=== PATIENT | female | born 1990 | race Caucasian/White ===

== ENCOUNTER 2016-09-18 20:02 | Inpatient (IN) | payer SELFPAY ==
[2016-09-18] MEDS ORDERED: NORMAL SALINE 1,000 ML IV ONE (20:46)
[2016-09-18] MEDS ORDERED: METOCLOPRAMIDE HCL 5 MG/ML VIAL IV ONE (20:46)
--- NOTE | 2016-09-18 20:47 | ERNOTE ---
Medical Problem HPI - Narrative Date of Service: 09/18/16 - General Chief Complaint: Nausea/Vomiting Time Seen by Provider: 09/18/16 20:38 Source: patient, RN notes reviewed Exam Limitations: no limitations - Immun/Allergies/Home Medications Immunizations: IMMUNIZATION HX Immunizations Up to Date Yes History of Influenza Vaccine Yes Hx Pneumococcal Vaccination No Allergies/Adverse Reactions: Allergies latex Allergy (Verified 09/18/16 20:13) Home Medications: HOME MEDICATIONS NK [No Home Medication] 09/18/16 [Last Taken Unknown] - History of Present History Narrative: 26 y/o female ambulatory to the ED with her family for vomiting that has been present for 3 days. She reports being unable to keep down anything but bread. She also reports having a fever of 102 earlier today. She denies any diarrhea. She is having right sided "sciatica" pain and reports this was present before she became ill. She is approximately 14 weeks with her second child and is receiving her care at [facility]. She as treated for a urinary tract infection approximately 3 weeks ago. Date (Duration): 09/16/16 Review of Systems - Review of Systems Constitutional: Present: recent illness, fever, chills, fatigue, malaise EYE: Present: no symptoms reported ENT: Absent: nose congestion, sore throat Respiratory: Absent: shortness of breath, cough Cardiology: Present: no symptoms reported Gastrointestinal/Abdominal: Present: nausea, vomiting, constipation, abdominal pain, eating less, drinking less. Absent: diarrhea Genitourinary: Absent: frequency, dysuria, hematuria, decreased urinary output Musculoskeletal: Present: back pain. Absent: joint pain Skin: Absent: rash, lesions Neurological: Absent: headache, dizziness/light-headedness Endocrine: Present: no symptoms reported Hematologic/Lymphatic: Present: no symptoms reported Psych: Present: no symptoms reported - Patient's Past Medical History Patient History - Medical: No pertinent hx Patient History - Cardiac/Respiratory: No pertinent hx Patient History - Cancer: No Hx of Cancer Patient History - Surgical Procedures: T & A Patient History - Other: None LMP (females 10-50): LMP (Calendar): 06/10/16 - Social History Living Situations: home Psych History: Hx of Anxiety, Hx of Bipolar Disorder Smoking Status: Never smoker Alcohol Use: none Drug Use: none - Immunizations Immunizations Up to Date: Yes Hx Pneumococcal Vaccination: No History of Influenza Vaccine: Yes Physical Exam - Physical Exam General Appearance: Present: wd/wn, alert, anxious, other - appears somewhat uncomfortable Neck: Present: normal inspection, nontender, supple, full range of motion Respiratory: Present: no respiratory distress, normal breath sounds, no accessory muscle use, lungs clear Cardiovascular/Chest: Present: regular rate, rhythm, no murmur, normal peripheral pulses Gastrointestinal/Abdominal: Present: normal bowel sounds, soft, tenderness - suprapubic, distended - mildly, gravid uterus, other - FHT's 188 Back Exam: Present: normal range of motion, no vertebral tenderness, CVA tenderness (R). Absent: CVA tenderness (L) Extremity Exam: Present: normal inspection, normal range of motion, no edema Neurological Exam: Present: alert, oriented, normal mood/affect, no motor/ sensory deficits Skin Exam: Present: normal color, warm/dry ED Progress - Results and Orders Patient's Lab Results:: I have reviewed the patient's lab results. - Vital Signs Patient's Vital Signs:: I have reviewed the patient's vital signs. Vital Signs: Vital Signs 09/18/16 20:08 Temperature 37.8 C H Pulse Rate 102 H Respiratory 18 Rate Blood Pressure 125/64 O2 Sat by Pulse 99 Oximetry - Progress/Reassessment Chief Complaint: Nausea/Vomiting Progress:: Improved Progress Note-Subjective: 09/18/16 22:18 Nausea improved with Reglan, Temp came up to 38.6 and Tylenol was given. Awaiting a call back from Dr. Castillo to discuss admission vs. outpatient treatment. Plan - Plan Plan: Dr. Castillo returned call, will admit patient observation status to med/surg for IV antibiotics. Patient agrees with plan. A urine culture is pending. Blood cultures were not obtained initially but are now ordered. The patient's records from [facility] are being obtained as she may have a culture report from her recent UTI. Departure - Departure Clinical Impression: Pyelonephritis affecting in second trimester Disposition: [facility] Condition: Stable
[2016-09-18] MEDS ORDERED: METOCLOPRAMIDE HCL 5 MG/ML VIAL ONE (20:53)
--- OUTSIDE RECORDS SUMMARY | 2016-09-18 20:59 | XMS REPORT | Continuity of Care Document ---
:1990 Author Organization [employer] [place] [address] Care Team Providers Name Role Phone Beverly Brown Primary Care Provider [phone] Source Comments This disclosure is being made pursuant to the [employer] program and maynot contain all information available regarding this patient.[employer] Active Allergies and Adverse Reactions Allergen Noted Date Severity Reactions Comments Lactose Intolerance (Gi) 07/06/2015 Low Rash Latex 07/06/2015 Low Rash Current Medications Be aware that medications may not be up to date as of this document. Alwaysverify current medications with the patient. Prescription Sig. Disp. Refills Start Date End Date Status valACYclovir (VALTREX) Take 500 mg by Active 500 MG tablet mouth as needed. fluoxetine (PROZAC) 40 Take 1 capsule by 30 capsule 2 08/11/2015 Active MG capsule mouth daily. Active Problems No known active problems Social History Tobacco Use Types Packs/Day Years Used Date Never Smoker Smokeless Tobacco: Never Used Alcohol Use Drinks/Week oz/Week Comments No Last Filed Vital Signs Vital Sign Reading Time Taken Blood Pressure 102/66 08/11/2015 4:17 PM CDT Pulse 60 08/11/2015 4:17 PM CDT Temperature 36.2 C (97.2 F) 08/11/2015 4:17 PM CDT Respiratory Rate 18 08/11/2015 4:17 PM CDT Height 1.651 m (5' 5") 07/06/2015 2:18 PM CDT Weight 57.516 kg (126 lb 12.8 oz) 08/11/2015 4:17 PM CDT Body Mass Index 21.1 08/11/2015 4:17 PM CDT Oxygen Saturation 99% 08/11/2015 4:17 PM CDT Plan of Care Health Maintenance Due Date Last Done Comments Tetanus/Pertussis (1 - Tdap) 2009 Pap Smear 05/30/2011 Influenza Immunization (#1) 2015 Results from Last 3 Months Not on file
[2016-09-18 21:08] LABS: Hematocrit 35.6 % (37.0-47.0); Hemoglobin 12.8 gm/dL (12.5-16.0); Mean Corpuscular Hemoglobin 32.7 pg (27-31); Mean Platelet Volume 9.3 fl (6.0-9.5); Neutrophil # 7.4 K/mm3 (1.3-6.0); Neutrophil % 80.3 % (42-75.0); Platelet Count 186 K/mm3 (150-450); Red Blood Count 3.91 M/mm3 (4.2-5.4); Red Cell Distribution Width 11.8 % (11.5-14.0); White Blood Count 9.2 K/mm3 (4.0-10.5)
[2016-09-18 21:10] LABS: Urine Bilirubin 3 mg/dl (NEGATIVE); Urine Blood 25 /ul (NEGATIVE); Urine Ketone 5 mg/dL (NEGATIVE); Urine Protein 100 mg/dL (NEGATIVE); Urine Urobilinogen 4 EU/dl (NORMAL); Urine pH 6.5 pH (5.0-7.0)
[2016-09-18 21:21] LABS: Albumin * 3.3 gm/dl (3.4-5.0); Anion Gap 14.4 mmol/L (6.8-13.8); BUN/Creatinine Ratio 7.4 (9.0-21.6); Bilirubin, Total 1.1 mg/dL (0.0-1.1); Ca. Corrected For Albumin 9.1 mg/dL (8.4-10.2); Calcium * 8.9 mg/dL (7.9-10.9); Carbon Dioxide 23.5 mmol/L (24-32.6); Potassium 3.9 mmol/L (3.4-4.6); Total Protein 7.5 gm/dL (6.2-8.2)
[2016-09-18 21:22] LABS: Urine Appearance Cloudy; Urine Bacteria 3+; Urine Color Orange; Urine Nitrite Positive (NEGATIVE); Urine RBC None Seen /hpf (0-5); Urine WBC >50 /hpf (0-5)
[2016-09-18] MEDS ORDERED: ACETAMINOPHEN 325 MG TABLET PO ONE (21:43)
[2016-09-18] MEDS ORDERED: ACETAMINOPHEN 325 MG TABLET ONE (21:43)
--- OUTSIDE RECORDS SUMMARY | 2016-09-18 22:32 | XMS REPORT | Continuity of Care Document ---
:1990 Author Organization [employer] Address [place] [address] Care Team Providers Name Role Phone Beverly Brown Primary Care Provider [phone] Source Comments This disclosure is being made pursuant to the [employer] program and maynot contain all information available regarding this patient.[employer] Active Allergies and Adverse Reactions Allergen Noted [...]
--- NOTE | 2016-09-18 23:00 | HP ---
Chief Complaint - Chief Complaint Date of Service: 09/18/16 Time of Service: 22:45 Chief Complaint: back pain with nausea, fever, and chills History of Present Illness: 26-year-old 2 para 1 at approximately 14 weeks gestation age presents to the [facility] emergency room complaining of right lower quadrant back pain, fever, chills, and nausea. Patient's has been uncomplicated except for UTI 2 weeks ago which she was treated with Fosfomycin. She developed right lower quadrant flank/back pain approximately one week, nausea for the past 3 days, and fever and chills today. She denies abdominal trauma, dysuria, urgency, vaginal bleeding, vaginal discharge, cramping, chest pain, shortness of breath, or headache. - Patient's Past Medical History Patient History - Medical: No pertinent hx, UTI'S - once, 2 wks ago, Other - 6 yrs ago without complications Patient History - Cardiac/Respiratory: No pertinent hx Patient History - Cancer: No Hx of Cancer Patient History - Surgical Procedures: T & A Patient History - Other: None LMP (females 10-50): LMP (Calendar): 06/10/16 - Social History Living Situations: home Abuse History: No History of abuse Psych History: Hx of Anxiety, Hx of Bipolar Disorder Does anyone smoke in the home?: No Smoking Status: Never smoker Alcohol Use: none Drug Use: none - Immunizations Immunizations Up to Date: Yes Hx Pneumococcal Vaccination: No History of Influenza Vaccine: Yes Review Of Systems (GEN) - Review of Systems Generalized/Overall Review: Present: Chills, Fever EENTM: Present: No Symptoms Reported Respiratory: Present: No Symptoms Reported Cardiac: Present: No Symptoms Reported Abdominal: Present: Nausea, Vomiting, Other - right flank/back pain Genitourinary: Present: No Symptoms Reported Musculoskeletal: Present: Back Pain Neurological: Present: No Symptoms Reported Skin: Present: No Symptoms Reported Endocrine: Present: No Symptoms Reported Immunizations: IMMUNIZATION HX Immunizations Up to Date Yes History of Influenza Vaccine Yes Hx Pneumococcal Vaccination No Allergies/Adverse Reactions: Allergies Allergy/AdvReac Type Severity Reaction Status Date / Time latex Allergy Verified 09/18/16 20:13 Home Medications: HOME MEDICATIONS NK [No Home Medication] 09/18/16 [Last Taken Unknown] Exam - Exam Vital Signs: Vital Signs - Last Taken Temp 38.6 C H 06/27/17 21:40 Pulse 88 09/18/16 21:03 Resp 16 09/18/16 21:03 BP 106/47 09/18/16 21:03 Pulse Ox 98 09/18/16 21:03 Constitutional: Present: Alert, Oriented x3, Cooperative, No distress ENT Exam: Present: hearing grossly normal Eye Exam: bilateral eye: normal inspection Neck: Present: non-tender, supple Back Exam: Present: CVA tenderness (R) Breasts: Present: Exam deferred Respiratory: Present: lungs clear, normal breath sounds, no respiratory distress , no accessory muscle use Cardiovascular/Chest: Present: normal peripheral pulses, regular rate, rhythm, no edema, no murmur Abdomen: Present: soft, nontender, nondistended, no rebound tenderness, no masses, CVA tenderness, other - heart tones 188 in the emergency room /Rectal: Present: Exam deferred Extremity: Present: non-tender, no pedal edema, no calf tenderness Skin Exam: Present: normal color, warm/dry, no cyanosis Lymphatic: Present: no adenopathy Neurologic: Present: oriented x 3 Appearance: Present: appropriate appearance, appropriate insight Eye contact: Present: cooperative, good eye contact, normal speech Thoughts: Present: normal thought pattern Diagnostic Studies: Abnormal Lab Results 09/18/16 09/18/16 09/18/16 Range/Units 18:55 19:02 19:02 RBC 3.91 L (4.2-5.4) M/mm3 Hct 35.6 L (37.0-47.0) % MCH 32.7 H (27-31) pg Immature Gran # (Auto) 0.04 H (0.000-0.0310) K/mm3 Neutrophils % 80.3 H (42-75.0) % Lymphocytes % 9.7 L (20-51) % Monocytes % 9.5 H (0.0-9) % Neutrophils # 7.4 H (1.3-6.0) K/mm3 Lymphocytes # 0.9 L (1.5-3.5) k/mm3 Carbon Dioxide 23.5 L (24-32.6) mmol/L Anion Gap 14.4 H (6.8-13.8) mmol/L BUN/Creatinine Ratio 7.4 L (9.0-21.6) ALT 13 L (19-67) U/L Albumin 3.3 L (3.4-5.0) gm/dl Urine Protein 100 H (NEGATIVE) mg/dL Urine Blood 25 H (NEGATIVE) /ul Urine Nitrate Positive H (NEGATIVE) Urine Bilirubin 3 H (NEGATIVE) mg/dl Urine Urobilinogen 4 H (NORMAL) EU/dl Ur Leukocyte Esterase 500 H (NEGATIVE) /ul Urine WBC >50 H (0-5) /hpf Urine Bacteria 3+ H (NONE) Laboratory Results WBC 9.2 K/mm3 (4.0-10.5) 09/18/16 19:02 RBC 3.91 M/mm3 (4.2-5.4) L 09/18/16 19:02 Hgb 12.8 gm/dL (12.5-16.0) 09/18/16 19:02 Hct 35.6 % (37.0-47.0) L 09/18/16 19:02 MCV 91.0 fl (78-100) 09/18/16 19:02 MCH 32.7 pg (27-31) H 09/18/16 19:02 MCHC 36.0 g/dl (32-36) 09/18/16 19:02 RDW 11.8 % (11.5-14.0) 09/18/16 19:02 Plt Count 186 K/mm3 (150-450) 09/18/16 19:02 MPV 9.3 fl (6.0-9.5) 09/18/16 19:02 Immature Gran % (Auto) 0.40 % (0.001-0.429) 09/18/16 19:02 Immature Gran # (Auto) 0.04 K/mm3 (0.000-0.0310) H 09/18/16 19:02 Neutrophils % 80.3 % (42-75.0) H 09/18/16 19:02 Lymphocytes % 9.7 % (20-51) L 09/18/16 19:02 Monocytes % 9.5 % (0.0-9) H 09/18/16 19:02 Eosinophils % 0.0 % (0.0-3.0) 09/18/16 19:02 Basophils % 0.1 % (0.0-1.0) 09/18/16 19:02 Nucleated RBC % 0.0 k/mm3 (0-1) 09/18/16 19:02 Neutrophils # 7.4 K/mm3 (1.3-6.0) H 09/18/16 19:02 Lymphocytes # 0.9 k/mm3 (1.5-3.5) L 09/18/16 19:02 Monocytes # 0.9 k/mm3 (0.0-1.0) 09/18/16 19:02 Eosinophils # 0.0 k/mm3 (0.0-0.7) 09/18/16 19:02 Absolute Basophils 0.0 k/mm3 (0.0-0.1) 09/18/16 19:02 Sodium 134 mmol/L (132-142) 09/18/16 19:02 Plasma Sodium 134 mmol/L (130-142) 09/18/16 19:02 Potassium 3.9 mmol/L (3.4-4.6) 09/18/16 19:02 Chloride 100 mmol/L (97-106) 09/18/16 19:02 Carbon Dioxide 23.5 mmol/L (24-32.6) L 09/18/16 19:02 Anion Gap 14.4 mmol/L (6.8-13.8) H 09/18/16 19:02 BUN 5 mg/dL (3-23) 09/18/16 19:02 Creatinine 0.68 mg/dL (0.4-1.4) 09/18/16 19:02 Est GFR (Non-Af Amer) 111 mL/min (60-130) 09/18/16 19:02 BUN/Creatinine Ratio 7.4 (9.0-21.6) L 09/18/16 19:02 Random Glucose 102 mg/dL (70-110) 09/18/16 19:02 Calcium 8.9 mg/dL (7.9-10.9) 09/18/16 19:02 Calcium Adj for Albumin 9.1 mg/dL (8.4-10.2) 09/18/16 19:02 Total Bilirubin 1.1 mg/dL (0.0-1.1) 09/18/16 19:02 AST 14 U/L (0-48) 09/18/16 19:02 ALT 13 U/L (19-67) L 09/18/16 19:02 Alkaline Phosphatase 53 U/L (50-170) 09/18/16 19:02 Total Protein 7.5 gm/dL (6.2-8.2) 09/18/16 19:02 Albumin 3.3 gm/dl (3.4-5.0) L 09/18/16 19:02 Urine Color [place] 09/18/16 18:55 Urine Appearance Cloudy 09/18/16 18:55 Urine pH 6.5 pH (5.0-7.0) 09/18/16 18:55 Ur Specific [place] 1.020 SP.GR. (1.005-1.010) 09/18/16 18:55 Urine Protein 100 mg/dL (NEGATIVE) H 09/18/16 18:55 Urine Glucose (UA) Negative mg/dL (NEGATIVE) 09/18/16 18:55 Urine Ketones 5 mg/dL (NEGATIVE) 09/18/16 18:55 Urine Blood 25 /ul (NEGATIVE) H 09/18/16 18:55 Urine Nitrate Positive (NEGATIVE) H 09/18/16 18:55 Urine Bilirubin 3 mg/dl (NEGATIVE) H 09/18/16 18:55 Urine Ictotest Negative (NEGATIVE) 09/18/16 18:55 Prot Sulfosalicylic Acd 1+ mg/dL (0) 09/18/16 18:55 Urine Urobilinogen 4 EU/dl (NORMAL) H 09/18/16 18:55 Ur Leukocyte Esterase 500 /ul (NEGATIVE) H 09/18/16 18:55 Urine RBC None seen /hpf (0-5) 09/18/16 18:55 Urine WBC >50 /hpf (0-5) H 09/18/16 18:55 Ur Epithelial Cells 0-5 /hpf (0-5) 09/18/16 18:55 Urine Bacteria 3+ (NONE) H 09/18/16 18:55 Urine Culture Comments Culture to follow 09/18/16 18:55 Assessment/Plan - Assessment/Plan (1) Pyelonephritis affecting in second trimester Assessment: Will admit for IV antibiotics until afebrile for at least 24 hours. We'll try to obtain urine culture supposedly done 2 weeks ago at [facility] to assure no resistant organisms. IV fluids, antibiotics, pain meds as needed. Assessment heart tones daily. Problem: Acute
[2016-09-19] MEDS: ceFAZolin SODIUM 1 GM in DEXTROSE 5 % IN WATER 100 ML IV SCH ×8 (00:07→23:05)
[2016-09-19] MEDS: DEXTROSE 5%-LACTATED RINGERS 1,000 ML IV PRN ×3 (00:08→17:50)
--- NOTE | 2016-09-19 11:42 | PN ---
Subjective - Date and Time Seen Date: 09/19/16 Time: 11:35 Subjective Narrative: Right flank pain resolving. Patient rates her pain as a 4/10. Nausea resolved , tolerating regular diet. Objective - Review of Systems Generalized/Overall Review: Reports: Weakness EENTM: Reports: No Symptoms Reported Respiratory: Reports: No Symptoms Reported Cardiac: Reports: No Symptoms Reported Abdominal: Reports: No Symptoms Reported, Abdominal Pain - Right CVA tenderness/ pain Genitourinary Symptoms: Reports: No Symptoms Reported Musculoskeletal Complaints: Reports: Back Pain Neurological: Reports: No Symptoms Reported Skin: Reports: No Symptoms Reported Endocrine: Reports: No Symptoms Reported - Vitals Vitals: Last Vital Signs Temp 37.2 C 09/19/16 10:15 Pulse 81 09/19/16 10:15 Resp 20 09/19/16 10:15 BP 121/57 09/19/16 10:15 Pulse Ox 94 09/19/16 10:15 Tmax 38.6 C at 2140 on 09/18/16 - Abnormal Lab Findings Abnormal Lab Findings: Micro growing E. Coli - awaiting CHUY - Exam Constitutional: Present: Alert, Oriented x3, Cooperative, No distress Respiratory: Present: lungs clear, normal breath sounds, no respiratory distress , no accessory muscle use Cardiovascular/Chest: Present: normal peripheral pulses, regular rate, rhythm, no edema Abdomen: Present: soft, no rebound tenderness, CVA tenderness, other - FHT 170 bpm /Rectal: Present: Exam deferred Extremity: Present: non-tender, no pedal edema, no calf tenderness Skin Exam: Present: normal color, warm/dry, no cyanosis Neurologic: Present: oriented x 3 Appearance: Present: appropriate appearance, appropriate insight Eye contact: Present: cooperative, good eye contact Thoughts: Present: normal thought pattern Assessment/Plan - Problems/Diagnosis (1) Pyelonephritis affecting in second trimester Problem: Acute Narrative: No significant fever since admission. Continues to improve clinically. Plan to continue IV antibiotics until 24 hours afebrile and CHUY back to assure organism susceptible to current antibiotic regimen. Probable discharge in a.m. on oral antibiotics for 2 weeks.
[2016-09-19] MEDS ORDERED: ACETAMINOPHEN 325 MG TABLET PO PRN (22:52)
[2016-09-19] MEDS ORDERED: IBUPROFEN 800 MG TABLET PO PRN (22:54)
[2016-09-19] MEDS ORDERED: oxyCODONE HCL/ACETAMINOPHEN 1 TAB TABLET PO PRN (22:54)
[2016-09-20] MEDS: ceFAZolin SODIUM 1 GM in DEXTROSE 5 % IN WATER 100 ML IV SCH ×2 (07:38)
--- NOTE | 2016-09-20 12:26 | PN ---
Subjective - Date and Time Seen Date: 09/20/16 Time: 12:18 Subjective Narrative: Patient's CVA pain/tenderness is minimal today. Objective - Review of Systems Generalized/Overall Review: Reports: No Symptoms Reported Respiratory: Reports: No Symptoms Reported Cardiac: Reports: No Symptoms Reported Abdominal: Reports: No Symptoms Reported Genitourinary Symptoms: Reports: No Symptoms Reported Musculoskeletal Complaints: Reports: No Symptoms Reported Neurological: Reports: No Symptoms Reported Skin: Reports: No Symptoms Reported Endocrine: Reports: No Symptoms Reported - Vitals Vitals: Last Vital Signs Temp 36.6 C 09/20/16 07:29 Pulse 75 09/20/16 07:29 Resp 18 09/20/16 07:29 BP 104/55 09/20/16 07:29 Pulse Ox 98 09/20/16 07:29 Tmax 38 at 2200 on 09/19/16 - Exam Constitutional: Present: Alert, Oriented x3, Cooperative, No distress Respiratory: Present: lungs clear, normal breath sounds, no respiratory distress Cardiovascular/Chest: Present: normal peripheral pulses, regular rate, rhythm, no edema Abdomen: Present: soft, nontender, nondistended, no rebound tenderness, CVA tenderness - minimal today /Rectal: Present: Exam deferred Extremity: Present: no pedal edema, no calf tenderness Skin Exam: Present: normal color, warm/dry Neurologic: Present: oriented x 3 Appearance: Present: appropriate appearance, appropriate insight Eye contact: Present: cooperative, good eye contact Thoughts: Present: normal thought pattern Assessment/Plan - Problems/Diagnosis (1) Pyelonephritis affecting in second trimester Problem: Acute Narrative: Urine culture shows Escherichia coli sensitive to all antibiotics tested for. Patient had a fever last p.m. so will need an additional 24 hours of IV antibiotics. Discussed with case management plan of action. We'll give Rocephin 1 g IV at 4 PM today and repeat dose in 24 hours at the [place]. Patient will then continue oral antibiotics for an additional 2 weeks.
--- NOTE | 2016-09-20 12:37 | DS ---
(1) Pyelonephritis affecting in second trimester Problem: Acute Description of Stay: 26-year-old 2 para 1 at 14 weeks gestation age admitted from the emergency room for pyelonephritis. Patient had a maximum of true elevation of 38.6C upon admission with another spike to 38C 24 hours later. Between these intervals of time patient's temperature remained within normal range. She responded well to IV cefazolin with resolution of her nausea, abdominal pain, and flank pain. She will be discharged today after receiving 1 g of Rocephin IV 1 and a repeat dose given at 4 PM tomorrow in the [place]. She will also be sent home on a prescription of cefuroxime 500 mg by mouth twice a day 14 days. Procedures Performed: see notes below - FHT q shift Results and Findings: Laboratory Tests 09/18/16 09/18/16 09/18/16 18:55 19:02 19:02 WBC 9.2 RBC 3.91 L Hgb 12.8 Hct 35.6 L MCV 91.0 MCH 32.7 H MCHC 36.0 RDW 11.8 Plt Count 186 MPV 9.3 Immature Gran % (Auto) 0.40 Immature Gran # (Auto) 0.04 H Neutrophils % 80.3 H Lymphocytes % 9.7 L Monocytes % 9.5 H Eosinophils % 0.0 Basophils % 0.1 Nucleated RBC % 0.0 Neutrophils # 7.4 H Lymphocytes # 0.9 L Monocytes # 0.9 Eosinophils # 0.0 Absolute Basophils 0.0 Sodium 134 Plasma Sodium 134 Potassium 3.9 Chloride 100 Carbon Dioxide 23.5 L Anion Gap 14.4 H BUN 5 Creatinine 0.68 Est GFR (Non-Af Amer) 111 BUN/Creatinine Ratio 7.4 L Random Glucose 102 Calcium 8.9 Calcium Adj for Albumin 9.1 Total Bilirubin 1.1 AST 14 ALT 13 L Alkaline Phosphatase 53 Total Protein 7.5 Albumin 3.3 L Urine Color [place] Urine Appearance Cloudy Urine pH 6.5 Ur Specific [place] 1.020 Urine Protein 100 H Urine Glucose (UA) Negative Urine Ketones 5 Urine Blood 25 H Urine Nitrate Positive H Urine Bilirubin 3 H Urine Ictotest Negative Prot Sulfosalicylic Acd 1+ Urine Urobilinogen 4 H Ur Leukocyte Esterase 500 H Urine RBC None seen Urine WBC >50 H Ur Epithelial Cells 0-5 Urine Bacteria 3+ H Urine Culture Comments Culture to follow Microbiology 09/18/16 20:54 Urine,Clean Catch Urine Culture - Final Escherichia Coli 09/18/16 22:49 Blood Blood Culture - Preliminary NO GROWTH 24 HOURS Microbiology Discharge Disposition: Home self care Disposition: Home self-care Condition: Good Discharge Activity: Activity as tolerated Discharge Diet: General/regular food Prescriptions (Any new or edited meds): Cefuroxime Axetil [Cefuroxime] 500 mg PO BID #28 tablet cefTRIAXone SODIUM [Rocephin] 1 gm IM ONCE #1 vial Complete Home Medications List: Complete Home Medication List: Cefuroxime Axetil [Cefuroxime] 500 mg PO BID #28 tablet 09/20/16 cefTRIAXone SODIUM [Rocephin] 1 gm IM ONCE #1 vial 09/21/16
[2016-09-20 15:15] VITALS: BP 97/55
== END 2016-09-20 16:20 | disposition home or self-care (01) | DRG 781 ==
LOC: ER 20:02 → MS 22:29 → UNDOADMOB 22:29 → MS 22:30 → OBSVTOIN 22:30
PROVIDERS: ADMIT Obstetrics & Gynecology; ATTEND Obstetrics & Gynecology
DX: O23.02 Infections of kidney in pregnancy, second trimester (principal); B96.20 Unspecified Escherichia coli [E. coli] as the cause of diseases classified elsewhere; Z3A.14 14 weeks gestation of pregnancy